=== PATIENT | male | born 1935 | race Caucasian/White ===

== ENCOUNTER 2021-03-21 17:46 | Emergency (ER) | payer MEDICARE, OTHER ==
[2021-03-21 18:34] LABS: HEMOGLOBIN 15.3 gm/dl (14.0-17.5); RED BLOOD COUNT 4.79 M/UL (4.20-5.50); WHITE BLOOD COUNT 11.6 K/UL (4.5-11.0)
[2021-03-21 19:08] LABS: BUN/CREATININE RATIO 18 (0-10)
== END 2021-03-22 09:25 | disposition left against medical advice (07) ==
LOC: ER1 17:46 → CDU 03-22 01:18
PROVIDERS: Emergency Medicine
DX: R53.1 Weakness (principal); R29.6 Repeated falls; I13.0 Hypertensive heart and chronic kidney disease with heart failure and stage 1 through stage 4 chronic kidney disease, or unspecified chronic kidney disease; N18.30 Chronic kidney disease, stage 3 unspecified; I50.9 Heart failure, unspecified; E78.5 Hyperlipidemia, unspecified; I25.10 Atherosclerotic heart disease of native coronary artery without angina pectoris; Z20.822 Contact with and (suspected) exposure to COVID-19; Z95.1 Presence of aortocoronary bypass graft; Z95.810 Presence of automatic (implantable) cardiac defibrillator; Z53.29 Procedure and treatment not carried out because of patient's decision for other reasons
CPT/HCPCS: 70450; 71045; 72125; 80053; 81001; 82550; 82553; 83690; 83735; 83874; 84439; 84443; 84484; 85025; 87040; 93005; 99285; U0002